=== PATIENT | male | born 1950 | race Caucasian/White ===

== ENCOUNTER 2017-06-23 09:11 | Outpatient (CLI) | payer MEDICARE, BC ==
[~2017-06-23] VITALS: Ht 162.6 cm; Wt 76.2 kg
[2017-06-23] MEDS ORDERED: ASPIR 8181 MG ORAL (10:57)
[2017-06-23] MEDS ORDERED: LIPITOR80 MG ORAL (10:57)
[2017-06-23] MEDS ORDERED: AMLODIPINE BESY10 MG ORAL (10:57)
[2017-06-23] MEDS ORDERED: DIOVAN160 MG ORAL (10:57)
[2017-06-23] MEDS ORDERED: ALLOPURINOL300 M1 ORAL (10:57)
[2017-06-23] MEDS ORDERED: BREO ELLIPTA 11 EACH IH (10:57)
[2017-06-23] MEDS ORDERED: METFORMIN HCL1000 M1 ORAL (10:57)
--- NOTE | 2017-06-23 11:01 | GI Initial Consult Note ---
LockhartJudi Destin N.P. 06/23/17 1101: History of Present Illness General Date patient seen: Jun 23, 2017 Time patient seen: 10:54 Referring physician: CARLO Reason for Consultation: Colonoscopy Present Illness HPI 66 year old patient referred by Dr. Batista here for repeat colonoscopy. The patient had prior colonoscopy approximately 3 years ago with colonic polyps. Hx of GERD. Patient presents today with no general GI complaints. Denies any unintentional weight loss or changes in dietary habits. No signs of abuse or neglect. Patient is not fall risk. Home Meds Reported Medications Fluticasone/Vilanterol (Breo Ellipta 100-25 Mcg INH) 1 Each Blst.w.dev, 1 EACH IH, EACH 06/23/17 Valsartan (Diovan) 160 Mg Tablet, 160 MG ORAL DAILY, TAB 06/23/17 Atorvastatin (Lipitor) 80 Mg Tablet, 40 MG ORAL BEDTIME, #30 TAB 0 Refills 06/23/17 Allopurinol* (ALLOPURINOL*) 300 Mg Tablet, 300 MG ORAL DAILY, TAB 06/23/17 Metformin Hcl* (METFORMIN HCL*) 1,000 Mg Tablet, 1000 MG ORAL DAILY, TAB 06/23/17 Amlodipine Besylate* (AMLODIPINE BESYLATE*) 10 Mg Tablet, 10 MG ORAL DAILY, TAB 06/23/17 Aspirin* (ASPIR 81*) 81 Mg Tablet.dr, 81 MG ORAL DAILY, TAB 06/23/17 Med list reviewed/reconciled: Yes Allergies: Coded Allergies: No Known Allergies (Unverified , 06/23/17) Patient History History Provided By: Patient, Medical Record PMH Narrative heart disease, HTN kidney stones pulmonary fibrosis sleep apnea Past Surgical History: Polypectomy Tonsillectomy Family History Narrative Mother had possible liver CA Social History: Reports: alcohol use - social, other - coffee Review of Systems All Other Systems: negative except mentioned in HPI Physical Exam T 98.0 BP 142/86 p 85 94 RA HT 5'4 wt 168.3 Sp02 EP Interpretation: reviewed, normal General Appearance: well appearing, no apparent distress, alert Head: normocephalic EENT: PERRL/EOMI, normal ENT inspection Neck: supple Respiratory: normal breath sounds, no respiratory distress Cardiovascular: normal rate Gastrointestinal: normal inspection, non tender, soft, normal bowel sounds, non -distended Rectal: deferred Genitourinary: deferred Musculoskeletal: normal inspection, back normal Neurologic: normal inspection, alert, oriented x3, responsive Psychiatric: normal inspection, judgement/insight normal, memory normal Skin: normal inspection, normal color, no rash, warm/dry, palpation normal, well hydrated Lymphatic: normal inspection, no adenopathy GI: Plan Problems: (1) Hx of colonic polyp (2) GERD (gastroesophageal reflux disease) (3) HTN (hypertension) (4) Pulmonary fibrosis (5) Sleep apnea Plan EGD/colonoscopy scheduled 07/10/17 - CLD & (Nulytely/Suprep/Movi-Prep) prep instructions given and acknowledged by patient. - NPO @ [place] day prior procedure explained. Seen with Dr. Stratton. Thank you for this patient referral. ALTAGRACIA STRATTON 06/30/17 1218: History of Present Illness Present Illness Home Meds Reported Medications Fluticasone/Vilanterol (Breo Ellipta 100-25 Mcg INH) 1 Each Blst.w.dev, 1 EACH IH, EACH 06/23/17 Valsartan (Diovan) 160 Mg Tablet, 160 MG ORAL DAILY, TAB 06/23/17 Atorvastatin (Lipitor) 80 Mg Tablet, 40 MG ORAL BEDTIME, #30 TAB 0 Refills 06/23/17 Allopurinol* (ALLOPURINOL*) 300 Mg Tablet, 300 MG ORAL DAILY, TAB 06/23/17 Metformin Hcl* (METFORMIN HCL*) 1,000 Mg Tablet, 1000 MG ORAL DAILY, TAB 06/23/17 Amlodipine Besylate* (AMLODIPINE BESYLATE*) 10 Mg Tablet, 10 MG ORAL DAILY, TAB 06/23/17 Aspirin* (ASPIR 81*) 81 Mg Tablet.dr, 81 MG ORAL DAILY, TAB 06/23/17 Allergies: Coded Allergies: No Known Allergies (Unverified , 06/23/17) GI: Plan Plan The patient was seen and examined at bedside and all new and available data was reviewed in the patients chart. I agree with the above findings, impression and plan. (Patient seen earlier today. Signature stamp does not reflect patient encounter time.). - MD Chantelle Devlin Anh Destin N.PCarlos Jun 23, 2017 11:01 ATLAGRACIA STRATTON Jun 30, 2017 12:18
[2017-06-23 13:21] VITALS: BP 142/86
== END 2017-06-23 09:45 | disposition home or self-care (01) ==
LOC: PAN 09:11
DX: K21.9 Gastro-esophageal reflux disease without esophagitis (principal); J84.10 Pulmonary fibrosis, unspecified; G47.30 Sleep apnea, unspecified; Z86.010 Personal history of colon polyps; I11.9 Hypertensive heart disease without heart failure; Z87.442 Personal history of urinary calculi; Z79.82 Long term (current) use of aspirin
CPT/HCPCS: 99201

== ENCOUNTER 2017-07-10 07:55 | Day surgery (SDC) | payer MEDICARE, BC ==
[2017-07-10] VITALS (7 sets, daily range): BP systolic 122–152; BP diastolic 74–89
[~2017-07-10] VITALS: Ht 162.6 cm; Wt 74.8 kg
--- NOTE | 2017-07-10 06:20 | Anethesia Preoperative Eval ---
Anesthesia Pre-op PMH/ROS General Date of Evaluation: Jul 10, 2017 Time of Evaluation: 06:18 Anesthesiologist: van ASA Score: ASA 3 Mallampati Score Class I : Soft palate, uvula, fauces, pillars visible Class II: Soft palate, uvula, fauces visible Class III: Soft palate, base of uvula visible Class IV: Only hard plate visible Mallampati Classification: Class II Surgeon: acrlos Diagnosis: colon screening Surgical Procedure: egd/colonoscopy Anesthesia History: none Social History: alcohol use Family History: no anesthesia problems Allergies: Coded Allergies: No Known Allergies (Unverified , 06/23/17) Medications: see eMAR Past Medical History Cardiovascular: Reports: HTN, other - hypercholesterolemia Pulmonary: Reports: COPD, MIKAL, other - pulmonary fibrosis Gastrointestinal/Genitourinary: Reports: GERD Endocrine: Reports: DM Anesthesia Pre-op Phys. Exam Physician Exam Last Vital Signs Date Time Temp Pulse Resp B/P (MAP) Pulse Ox O2 Delivery O2 Flow Rate FiO2 07/10/17 08:27 97.5 89 18 147/89 93 Room Air Constitutional: NAD Neurologic: CN 2-12 intact Cardiovascular: RRR Respiratory: CTA Gastrointestinal: S/NT/ND Airway Exam Mallampati Score: Class II MO: full Neck: supple TMD: 2fb ROM: full Anesthesia Pre-op A/P Risk Assessment & Plan Assessment: asa3 Plan: mac Status Change Before Surgery: No Pre-Antibiotics Drug: TRINY Jeronimo Jul 10, 2017 06:20
[~2017-07-10 07:55] MED LIST: ALLOPURINOL300 M1 ORAL; AMLODIPINE BESY10 MG ORAL; ASPIR 8181 MG ORAL; BREO ELLIPTA 11 EACH IH; DIOVAN160 MG ORAL; LIPITOR80 MG ORAL; METFORMIN HCL1000 M1 ORAL
[2017-07-10] MEDS ORDERED: Lidocaine 1% MPF 10mg/ml 5ml ONE (07:56)
[2017-07-10] MEDS ORDERED: NS 500ML ONE (07:56)
[2017-07-10] MEDS ORDERED: Propofol 200mg/20ml IV ONE (07:56)
--- NOTE | 2017-07-10 09:09 | Pre-Procedure Note/Attestation ---
Pre-Procedure Note/Attestation Complete Prior to Procedure Planned Procedure: not applicable Procedure Narrative: esophagogastroduodenoscopy and colooscopy Indications for Procedure Pre-Operative Diagnosis: screening colon, GERD Attestation I attest that I discussed the nature of the procedure; its benefits; risks and complications; and alternatives (and the risks and benefits of such alternatives ), prior to the procedure, with the patient (or the patient's legal cash application representative). I attest that, if there was a reasonable possibility of needing a blood transfusion, the patient (or the patient's legal cash application representative) was given the [facility] standardized written summary, pursuant to the [place] Blood Safety Act ([place] Health and Safety Code # 1645, as amended). I attest that I re-evaluated the patient just prior to the surgery and that there has been no change in the patient's H&P, except as documented below: ALTAGRACIA STRATTON Jul 10, 2017 09:09
--- NOTE | 2017-07-10 09:10 | Short Stay Surgery H&P ---
History of Present Illness History of Present Illness Chief Complaint see recent consult note HPI Issa Millan is a 66 year old male who was admitted on for Colon Screening Patient History Allergies: Coded Allergies: No Known Allergies (Unverified , 06/23/17) PAST MEDICAL HISTORY: Past Surgeries: Social History: Medication History Scheduled Allopurinol* (Allopurinol*), 300 MG ORAL DAILY, (Reported) Amlodipine Besylate* (Amlodipine Besylate*), 10 MG ORAL DAILY, (Reported) Aspirin* (Aspir 81*), 81 MG ORAL DAILY, (Reported) Atorvastatin (Lipitor), 40 MG ORAL BEDTIME, (Reported) Metformin Hcl* (Metformin Hcl*), 1,000 MG ORAL DAILY, (Reported) Valsartan (Diovan), 160 MG ORAL DAILY, (Reported) Miscellaneous Medications Fluticasone/Vilanterol (Breo Ellipta 100-25 Mcg INH), 1 EACH IH, (Reported) Physical Exam Vital Signs Last Vital Signs Date Time Temp Pulse Resp B/P (MAP) Pulse Ox O2 Delivery O2 Flow Rate FiO2 07/10/17 08:27 97.5 89 18 147/89 93 Room Air Plan Attestation Are the patient's medical conditions optimized for surgery? ALTAGRACIA STRATTON Jul 10, 2017 09:10
--- NOTE | 2017-07-10 09:52 | Endoscopy Procedure Note ---
Endoscopy Procedure Note Indication for Procedure: screening colon, GERD Procedures Performed: EGD, colonoscopy Operative Findings/Diagnosis: 3 colon polyps, esophagitis Specimen: yes Pt Tolerated Procedure Well: Yes Estimated Blood Loss: none Anesthesiologist: alexander Anesthesia: MAC Implant(s) used?: No 50 yrs or older w/o bx or poly: No 10yrs. F/U not recommended: Yes If not recommended, why?: Above average risk 10 yrs. F/U needed: Yes 18 years or older w/prev. colo: No ALTAGRACIA STRATTON Jul 10, 2017 09:52
[2017-07-10] MEDS ORDERED: Midazolam 2mg/2ml Inj IVP PRN (10:00)
[2017-07-10] MEDS ORDERED: DiphenhydrAMINE 50mg/ml Inj IVP PRN (10:00)
[2017-07-10] MEDS ORDERED: fentaNYL 100 mcg/2 mL IV PRN (10:00)
[2017-07-10] MEDS ORDERED: Atropine Inj 1mg/10ml Syr IV PRN (10:00)
--- NOTE | 2017-07-10 13:19 | Immediate Post-Op Evaluation ---
Immediate Post-Op Evalulation Immediate Post-Op Evalulation Procedure: egd/colonoscopy Date of Evaluation: Jul 10, 2017 Time of Evaluation: 10:15 IV Fluids: 400ml 0.9ns Blood Products: none Estimated Blood Loss: negligible Blood Pressure Systolic: 126 Blood Pressure Diastolic: 89 Pulse Rate: 88 Respiratory Rate: 18 O2 Sat by Pulse Oximetry: 99 Temperature (Fahrenheit): 98.3 Pain Score (1-10): 0 Nausea: No Vomiting: No Complications none Patient Status: awake, reacts, patent Hydration Status: adequate Drug: TRINY Jeronimo Jul 10, 2017 13:19
--- NOTE | 2017-07-10 15:15 | Procedure Note ---
DATE OF PROCEDURE: 07/10/2017 SURGEON: Isaías Martins M.D. PROCEDURE: Upper endoscopy with biopsy and colonoscopy with biopsy and snare polypectomy. ANESTHESIOLOGIST: Silvia Woods M.D. INSTRUMENT: Olympus adult flexible upper endoscope and colonoscope. INDICATION: Screening colonoscopy evaluation and chronic GERD. REASON FOR PROCEDURE: The procedure, risks, benefits, and possible consequences, including hemorrhage, aspiration, perforation and infection, and alternative treatments, were explained to the patient/legal guardian by Dr. Isaías Martins and the patient/legal guardian understood and accepted these risks. DESCRIPTION OF PROCEDURE: After informed consent was obtained and the patient was adequately sedated, Olympus upper endoscope was advanced from mouth into the second portion of the duodenum and retroflexion was performed in the stomach. The patient has evidence of 2 cm hiatal hernia. There was evidence of LA criteria grade 1/grade 2 distal esophagitis. In the stomach, there was evidence of diffuse gastritis. Random biopsies from antrum and body was obtained to rule out H. pylori infection. The rest of the upper endoscopic examination was grossly within normal limits. At this time, the upper endoscope was retrieved and the patient was turned over for colonoscopy. First, a rectal exam was performed, which shows positive for internal hemorrhoids. Then, the scope was advanced from the rectum into the cecum documented by appendiceal orifice, ileocecal valve, and right upper quadrant palpation. Quality of prep was good except for the cecum area, which had some thick greenish fluid covering half of it. The patient had two diminutive polyps in the cecum, which were removed with the cold biopsy forceps technique. There was a sessile polyp in the distal transverse colon, roughly measured about 6 mm, removed with the snare polypectomy technique. The patient had evidence of diverticulosis both on the right and left colon, but more prominent in the left colon. Retroflexion of rectum showed evidence of small internal hemorrhoids. SUMMARY OF FINDINGS: 1. A 2 cm hiatal hernia. 2. Esophagitis. 3. Gastritis, status post biopsy. 4. Hemorrhoids. 5. Diverticulosis. 6. Three colonic polyps removed, see above for details. RECOMMENDATIONS: Follow up biopsies and treat accordingly. We will start the patient on PPI given evidence of esophagitis. Follow biopsy results. The patient would most probably benefit from repeat colonoscopy in three years given three polyps. I want to thank, Dr. Batista, for this kind referral. Isaías Martins M.D. DR: BELTRAN JOB#: [id number] CC: Laron Batista M.D.
--- NOTE | 2017-07-10 15:33 | 48 Hour Post Anesthesia Eval ---
Post Anesthesia Evaluation Procedure: egd/colonoscopy Date of Evaluation: Jul 10, 2017 Time of Evaluation: 10:17 Blood Pressure Systolic: 122 0: 88 Pulse Rate: 88 Respiratory Rate: 18 Temperature (Fahrenheit): 98.3 O2 Sat by Pulse Oximetry: 99 Airway: patent Nausea: No Vomiting: No Pain Intensity: 0 Hydration Status: adequate Cardiopulmonary Status: stable Mental Status/LOC: patient returned to baseline Post-Anesthesia Complications: none Follow-up care needed: N/A TRINY GALVAN Jul 10, 2017 15:33
--- NOTE | 2017-07-16 15:27 | Cardiology Report ---
APPROVED REPORT EKG Measurement Heart [id number] Normal sinus rhythm Anteroseptal infarct, age undetermined Abnormal ECG
== END 2017-07-10 10:45 | disposition home or self-care (01) ==
LOC: GAS 07:55
DX: Z12.11 Encounter for screening for malignant neoplasm of colon (principal); K21.9 Gastro-esophageal reflux disease without esophagitis; K44.9 Diaphragmatic hernia without obstruction or gangrene; K20.9 Esophagitis, unspecified; K57.30 Diverticulosis of large intestine without perforation or abscess without bleeding; K63.5 Polyp of colon; I10 Essential (primary) hypertension; E78.00 Pure hypercholesterolemia, unspecified; J44.9 Chronic obstructive pulmonary disease, unspecified; G47.33 Obstructive sleep apnea (adult) (pediatric); E11.9 Type 2 diabetes mellitus without complications; Z79.82 Long term (current) use of aspirin; Z79.84 Long term (current) use of oral hypoglycemic drugs; K29.50 Unspecified chronic gastritis without bleeding; D12.0 Benign neoplasm of cecum; D12.3 Benign neoplasm of transverse colon
CPT/HCPCS: 43239; 45380; 82962; 93005; J2704; J7040; 94003; 94150

== ENCOUNTER 2017-07-20 13:08 | Outpatient (CLI) | payer MEDICARE, BC ==
--- NOTE | 2017-07-20 14:18 | GI Progress Note ---
Assessment/Plan Problems: (1) GERD (gastroesophageal reflux disease) ICD Codes: K21.9 - Gastro-esophageal reflux disease without esophagitis SNOMED: 607062852 (2) Hx of colonic polyp ICD Codes: Z86.010 - Personal history of colonic polyps SNOMED: 467636186 (3) HTN (hypertension) ICD Codes: I10 - Essential (primary) hypertension SNOMED: 69796101 Status: stable Status Narrative Discussed with Dr. Martins. Assessment/Plan SUMMARY OF FINDINGS: 1. A 2 cm hiatal hernia. 2. Esophagitis. 3. Gastritis, status post biopsy. 4. Hemorrhoids. 5. Diverticulosis. 6. Three colonic polyps removed, see above for details. RECOMMENDATIONS: Follow up biopsies and treat accordingly. >> negative for H. Pylori cont PPI RTC x 6 months The patient would most probably benefit from repeat colonoscopy in three years given three polyps. Subjective Gastrointestinal/Abdominal: Reports: no symptoms Objective T 98.3 BP 146/86 P 106 90 RA General Appearance: WD/WN, no apparent distress, alert Cardiovascular: normal rate Respiratory/Chest: normal breath sounds, no respiratory distress Abdominal Exam: normal bowel sounds, non tender, soft Extremities: normal range of motion, non-tender Judi Lockhart N.P. Jul 20, 2017 14:18
== END 2017-07-20 13:42 | disposition home or self-care (01) ==
LOC: PAN 13:08
DX: K21.0 Gastro-esophageal reflux disease with esophagitis (principal); Z86.010 Personal history of colon polyps; I10 Essential (primary) hypertension; K44.9 Diaphragmatic hernia without obstruction or gangrene; K29.70 Gastritis, unspecified, without bleeding; K57.90 Diverticulosis of intestine, part unspecified, without perforation or abscess without bleeding; K64.9 Unspecified hemorrhoids
CPT/HCPCS: 99212

== ENCOUNTER 2018-02-09 10:21 | Outpatient (CLI) | payer MEDICARE, BC ==
[2018-02-09 10:44] VITALS: BP 134/89
--- NOTE | 2018-02-09 11:19 | GI Progress Note ---
Assessment/Plan Problems: (1) GERD (gastroesophageal reflux disease) ICD Codes: K21.9 - Gastro-esophageal reflux disease without esophagitis SNOMED: 894766087 (2) Sleep apnea ICD Codes: G47.30 - Sleep apnea, unspecified SNOMED: 62860484 Status: stable Status Narrative Seen with Dr. Martins. Assessment/Plan cont PPI RTC prn repeat colonoscopy 06/2020 The patient was seen and examined at bedside and all new and available data was reviewed in the patients chart. I agree with the above findings, impression and plan. (Patient seen earlier today. Signature stamp does not reflect patient encounter time.). - Isaías Martins MD Subjective Subjective GERD >> on ppi for 7 months, cough has improved and sleeps better. Objective Last 24 Hour Vital Signs Date Time Temp Pulse Resp B/P (MAP) Pulse Ox O2 Delivery O2 Flow Rate FiO2 02/09/18 10:44 97.7 90 16 134/89 94 97.7 General Appearance: WD/WN, no apparent distress, alert Cardiovascular: normal rate Respiratory/Chest: normal breath sounds, no respiratory distress Abdominal Exam: normal bowel sounds, non tender, soft Extremities: normal range of motion, non-tender Ruslan Lcokhart CLERK SUPERVISOR Feb 09, 2018 11:19
[2018-02-09] MEDS ORDERED: IRBESARTAN300 MG ORAL (11:21)
== END 2018-02-09 10:55 | disposition home or self-care (01) ==
LOC: PAN 10:21
DX: K21.9 Gastro-esophageal reflux disease without esophagitis (principal); G47.30 Sleep apnea, unspecified
CPT/HCPCS: G0463

== ENCOUNTER 2019-04-28 12:33 | Outpatient (CLI) | payer MEDICARE, BC ==
[~2019-04-28 12:33] MED LIST changes: +IRBESARTAN300 MG ORAL; +OMEPRAZOLE40 M1 ORAL
--- NOTE | 2019-04-28 13:19 | General Progress Note ---
Assessment/Plan Assessment/Plan: SUMMARY OF FINDINGS: 1. A 2 cm hiatal hernia. 2. Esophagitis. 3. Gastritis, status post biopsy. 4. Hemorrhoids. 5. Diverticulosis. 6. Three colonic polyps removed, see above for details. 7. pulm fibrosis refill ppi repeat EGD and colonoscopy in 2 years Subjective ROS Limited/Unobtainable: Yes Allergies: Coded Allergies: No Known Allergies (Unverified , 06/23/17) Objective General Appearance: alert EENT: normal ENT inspection Neck: supple Cardiovascular: normal rate Respiratory/Chest: decreased breath sounds Abdomen: normal bowel sounds, non tender, soft Extremities: non-tender Isaías Martins MD Apr 28, 2019 13:19
[2019-04-28 15:20] VITALS: BP 130/72
== END 2019-04-28 14:33 | disposition home or self-care (01) ==
LOC: PAN 12:33
DX: K44.9 Diaphragmatic hernia without obstruction or gangrene (principal); K29.70 Gastritis, unspecified, without bleeding; K20.9 Esophagitis, unspecified; K64.9 Unspecified hemorrhoids; K57.90 Diverticulosis of intestine, part unspecified, without perforation or abscess without bleeding; K63.5 Polyp of colon; J84.10 Pulmonary fibrosis, unspecified
CPT/HCPCS: 99212